=== PATIENT | male | born 1960 | race African-American/Black ===

== ENCOUNTER 2017-08-25 16:28 | Inpatient (IN) | payer MEDICAID ==
[~2017-08-25] VITALS: Ht 182.9 cm; Wt 81.4 kg
[~2017-08-25 16:28] MED LIST: HUMALOG100 U/ML SC; LANTUS SOLOS100 U/M1 SQ; ZES5 PO
[2017-08-25 19:02] LABS: BASOPHIL % 0.3 % (0-2); PLATELET COUNT 190 x10^3mcL (130-400); RED CELL DISTRIBUTION WIDTH 12.8 % (11.5-14.5)
[2017-08-25 19:14] LABS: CALCIUM 9.7 mg/dL (8.5-10.1); CARBON DIOXIDE 31.8 mmol/L (21-32); CREATININE SERUM 1.5 mg/dL (0.7-1.3); POTASSIUM SERUM 4.5 mmol/L (3.5-5.1)
[2017-08-25 19:26] LABS: BILIRUBIN TOTAL 0.64 mg/dL (0.20-1.00); T4(THYROXINE) 5.5 ug/dL (4.7-13.3)
[2017-08-25 19:28] LABS: TOTAL PROTEIN, SERUM 8.4 g/dL (6.4-8.2)
[2017-08-25 19:54] LABS: microscopic required? NO
[2017-08-25 20:13] LABS: UA SPECIFIC GRAVITY <=1.005 (1.005-1.035); urine erythrocyte NEGATIVE (NEGATIVE)
[2017-08-25 20:31] LABS: AMPHETAMINE QUAL UR NONE DETECTED (NEG <=1000)
[2017-08-25] MEDS ORDERED: LIPITOR40 MG (20:52)
[2017-08-25] MEDS ORDERED: NEURONTIN800 MG (20:53)
[2017-08-25] MEDS ORDERED: LANTUS SOLOS100 U/M1 (20:53)
[2017-08-25 21:44] VITALS: BP 150/103
[2017-08-25 22:25] LABS: MAGNESIUM 2.1 mg/dL (1.8-2.4); PHOSPHOROUS 3.9 mg/dL (2.5-4.9)
[2017-08-25 22:30] LABS: T3 TOTAL 0.8 ng/mL
[2017-08-25 22:34] LABS: FREE T4 0.79 ng/dL (0.76-1.46); T4(THYROXINE) 5.7 ug/dL (4.7-13.3)
[2017-08-26 00:45] VITALS: BP 130/90
[2017-08-26 06:07] VITALS: BP 119/78
[2017-08-26 06:17] LABS: BASOPHIL % 0.3 % (0-2); PLATELET COUNT 168 x10^3mcL (130-400); RED CELL DISTRIBUTION WIDTH 12.9 % (11.5-14.5)
[2017-08-26 06:47] LABS: CALCIUM 8.7 mg/dL (8.5-10.1); CARBON DIOXIDE 26.6 mmol/L (21-32); CHLORIDE SERUM 105 mmol/L (98-107); CREATININE SERUM 1.1 mg/dL (0.7-1.3); GFR1 > 60 mL/min; GLUCOSE SERUM 213 mg/dL (74-106); MAGNESIUM 1.8 mg/dL (1.8-2.4); PHOSPHOROUS 3.4 mg/dL (2.5-4.9); POTASSIUM SERUM 3.9 mmol/L (3.5-5.1); SODIUM SERUM 141 mmol/L (136-145)
[2017-08-26 09:23] VITALS: BP 120/77
[2017-08-26 10:45] VITALS: Ht 182.9 cm; Wt 81.4 kg
[2017-08-26 13:28] VITALS: BP 130/80
[2017-08-26 17:08] VITALS: BP 132/84
[2017-08-26 21:48] VITALS: BP 143/82
[2017-08-27 05:59] VITALS: BP 149/88
[2017-08-27 07:31] LABS: BASOPHIL % 0.3 % (0-2); PLATELET COUNT 167 x10^3mcL (130-400); RED CELL DISTRIBUTION WIDTH 12.8 % (11.5-14.5)
[2017-08-27 07:35] LABS: CHLORIDE SERUM 104 mmol/L (98-107); CREATININE SERUM 1.1 mg/dL (0.7-1.3); GFR1 > 60 mL/min; GLUCOSE SERUM 180 mg/dL (74-106); MAGNESIUM 1.6 mg/dL (1.8-2.4); PHOSPHOROUS 3.9 mg/dL (2.5-4.9); POTASSIUM SERUM 3.5 mmol/L (3.5-5.1); SODIUM SERUM 138 mmol/L (136-145)
[2017-08-27 08:58] VITALS: BP 152/80
[2017-08-27] MEDS ORDERED: MECLIZINE HCL12.5 MG PO (12:03)
[2017-08-27] MEDS ORDERED: LAC PO (12:03)
[2017-08-27] MEDS ORDERED: CORTOS OT (12:05)
[2017-08-27 13:14] VITALS: BP 152/80
[2017-08-27 13:48] VITALS: BP 141/81
== END 2017-08-27 15:29 | disposition home or self-care (01) | DRG 204 ==
LOC: ED 16:28 → DU 21:08
PROVIDERS: Emergency Medicine; ADMIT Family Medicine
DX: R55 Syncope and collapse (principal); N17.0 Acute kidney failure with tubular necrosis; D68.69 Other thrombophilia; E11.59 Type 2 diabetes mellitus with other circulatory complications; E11.65 Type 2 diabetes mellitus with hyperglycemia; H60.91 Unspecified otitis externa, right ear; J45.909 Unspecified asthma, uncomplicated; E78.5 Hyperlipidemia, unspecified; Z79.4 Long term (current) use of insulin; Z68.24 Body mass index [BMI] 24.0-24.9, adult
CPT/HCPCS: 36600; 83880; 84439; J1815; J1956; J3490; J7030; J7613; J7633; Q0092; Q9967